=== PATIENT | female | born 1990 | race Caucasian/White ===

== ENCOUNTER 2019-03-13 21:10 | Emergency (ER) | payer OTHER ==
[2019-03-13 21:31] VITALS: BP 119/85; PULSE 91; RESP 18; TEMP 99.3
[2019-03-13] MEDS ORDERED: ACET/COD 300 MG/30 MG STARTER PACK 6 TAB BTL PO STA (22:12)
--- NOTE | 2019-03-13 22:50 | XR ---
EXAM: XR Left Wrist Complete, 3 or More Views CLINICAL HISTORY: Pain TECHNIQUE: Frontal, lateral and oblique views of the left wrist. COMPARISON: No relevant prior studies available. FINDINGS: Bones/joints: Unremarkable. No acute fracture. No dislocation. Soft tissues: Unremarkable. No radiopaque foreign body. IMPRESSION: Normal left wrist x-rays.
--- NOTE | 2019-03-13 23:00 | ED ---
General Adult HPI - General Chief complaint: Extremity Injury, Upper Stated complaint: left wrist injury Time Seen by Provider: 03/13/19 21:33 Source: patient Mode of arrival: ambulatory Limitations: no limitations - History of Present Illness Initial comments: Patient is a 28-year-old female presenting to emergency Department with a chief complaint of left wrist pain. Patient reports a kid jumped on her back and she lost balance and fell on an outstretched left wrist as she tried to brace her fall. Patient reports tenderness with palpation. Patient denies anatomical snuffbox tenderness. Patient reports the pain is exacerbated with any movement of the left wrist. Patient denies any numbness or tingling. Patient denies any lacerations or abrasions at the site. Patient reports erythema and edema but no skin discoloration. Patient reports the pain is alleviated at rest. Patient is able to move her fingers with limited range of motion. Patient reports taking [id number] analgesics minimal improvement. - Related Data Home Medications Medication Instructions Recorded Confirmed ALPRAZolam [Xanax] 2 mg PO BID 03/08/14 03/08/14 DULoxetine HCL [Cymbalta] 60 mg PO BID 03/08/14 03/08/14 Dicyclomine [Bentyl] 10 mg PO TID 03/08/14 03/08/14 HYDROcodone/APAP 7.5-325MG [[place] 1 each PO Q6HR PRN 03/08/14 03/08/14 7.5] traMADol HCl [Ultram] 100 mg PO Q6HR PRN 03/08/14 03/08/14 traZODone HCL [Desyrel] 100 mg PO HS 03/08/14 03/08/14 Allergies Allergy/AdvReac Type Severity Reaction Status Date / Time amoxicillin trihydrate Allergy Rash/Hives Verified 03/15/19 14:31 [From Augmentin] potassium clavulanate Allergy Rash/Hives Verified 03/15/19 14:31 [From Augmentin] venom-honey bee Allergy Anaphylaxis Verified 03/15/19 14:31 [bee venom (honey bee)] ibuprofen AdvReac Unknown Verified 03/15/19 14:31 Review of Systems ROS Statement: Those systems with pertinent positive or pertinent negative responses have been documented in the HPI. ROS Other: All systems not noted in ROS Statement are negative. Past Medical History Past Medical History: GERD/Reflux Additional Past Medical History / Comment(s): chron's, gastric ulcers, cervical ca (in remission), History of Any Multi-Drug Resistant Organisms: None Reported Past Surgical History: Cholecystectomy Additional Past Surgical History / Comment(s): leep, laproscopy, partial hysterectomy Past Psychological History: Anxiety, Bipolar, Depression Smoking Status: Current every day smoker Past Alcohol Use History: Rare Past Drug Use History: Marijuana General Exam Limitations: no limitations General appearance: alert, in no apparent distress Head exam: Present: atraumatic, normocephalic, normal inspection Eye exam: Present: normal appearance, PERRL, EOMI Pupils: Present: normal accommodation ENT exam: Present: normal exam, mucous membranes moist, normal external ear exam Neck exam: Present: normal inspection, full ROM Respiratory exam: Present: normal lung sounds bilaterally Cardiovascular Exam: Present: regular rate, normal rhythm, normal heart sounds Extremities exam: Present: tenderness (Left wrist tenderness. No anatomical snuffbox tenderness), normal capillary refill, other (+2 ulnar and radial pulses bilaterally). Absent: normal inspection (Mild edema and erythema on the left w rist), full ROM (Limited range of motion due to pain) Back exam: Present: normal inspection, full ROM Neurological exam: Present: alert, oriented X3 Psychiatric exam: Present: normal affect, normal mood Skin exam: Present: warm, intact, normal color Course Vital Signs 03/13/19 21:27 Temperature 99.3 F Pulse Rate 91 Respiratory 18 Rate Blood Pressure 119/85 O2 Sat by Pulse 99 Oximetry Disposition Clinical Impression: Wrist sprain Disposition: HOME SELF-CARE Condition: Stable Instructions (If sedation given, give patient instructions): Wrist Injury (ED) Additional Instructions: Please follow up with orthopedics. Please return to emergency department if symptoms worsen. Apply cold compress to minimize swelling. Is patient prescribed a controlled substance at d/c from ED?: No Referrals: None,Stated [Primary Care Provider] - 1-2 days William Subramanian DO [Medical Doctor] - 1-2 days Time of Disposition: 23:00
== END 2019-03-13 23:18 | disposition home or self-care (01) ==
LOC: EC 21:10
DX: S63.502A Unspecified sprain of left wrist, initial encounter (principal); F41.9 Anxiety disorder, unspecified; F32.9 Major depressive disorder, single episode, unspecified; F17.200 Nicotine dependence, unspecified, uncomplicated; Z85.41 Personal history of malignant neoplasm of cervix uteri; Z79.899 Other long term (current) drug therapy; Z88.0 Allergy status to penicillin; Z91.030 Bee allergy status; Z88.6 Allergy status to analgesic agent; W19.XXXA Unspecified fall, initial encounter
CPT/HCPCS: 99283

== ENCOUNTER 2019-03-15 14:26 | Emergency (ER) | payer OTHER ==
[2019-03-15 14:31] VITALS: BP 129/78; PULSE 84; RESP 16; TEMP 98.4
--- NOTE | 2019-03-15 14:49 | ED ---
General Adult HPI - General Chief complaint: Extremity Injury, Upper Stated complaint: wrist pain Time Seen by Provider: 03/15/19 14:29 Source: patient Mode of arrival: ambulatory Limitations: no limitations - History of Present Illness Initial comments: Patient is 28-year-old female presenting to emergency Department with chief complaint of left wrist pain. Patient was seen in the ED 2 days ago with the same complaint when the original injury occurred. Patient reports the pain has not resolved and she has developed mild ecchymosis on the anterior aspect of the left wrist. Patient reports mild improvement in range of motion. Patient still denies any numbness or tingling. Patient reports mild edema at the site of injury. Patient reports taking [id number] analgesics with minimal improvement. Patient reports she called the electronic publishing specialist who said they will see her in 3 weeks but she is going back to [place] in 2 weeks. - Related Data Home Medications Medication Instructions Recorded Confirmed ALPRAZolam [Xanax] 2 mg PO BID 03/08/14 03/08/14 DULoxetine HCL [Cymbalta] 60 mg PO BID 03/08/14 03/08/14 Dicyclomine [Bentyl] 10 mg PO TID 03/08/14 03/08/14 HYDROcodone/APAP 7.5-325MG [[place] 1 each PO Q6HR PRN 03/08/14 03/08/14 7.5] traMADol HCl [Ultram] 100 mg PO Q6HR PRN 03/08/14 03/08/14 traZODone HCL [Desyrel] 100 mg PO HS 03/08/14 03/08/14 Allergies Allergy/AdvReac Type Severity Reaction Status Date / Time amoxicillin trihydrate Allergy Rash/Hives Verified 03/15/19 14:31 [From Augmentin] potassium clavulanate Allergy Rash/Hives Verified 03/15/19 14:31 [From Augmentin] venom-honey bee Allergy Anaphylaxis Verified 03/15/19 14:31 [bee venom (honey bee)] ibuprofen AdvReac Unknown Verified 03/15/19 14:31 Review of Systems ROS Statement: Those systems with pertinent positive or pertinent negative responses have been documented in the HPI. ROS Other: All systems not noted in ROS Statement are negative. Past Medical History Past Medical History: GERD/Reflux Additional Past Medical History / Comment(s): chron's, gastric ulcers, cervical ca (in remission), History of Any Multi-Drug Resistant Organisms: None Reported Past Surgical History: Cholecystectomy Additional Past Surgical History / Comment(s): leep, laproscopy, partial hysterectomy Past Psychological History: Anxiety, Bipolar, Depression Smoking Status: Current every day smoker Past Alcohol Use History: Rare Past Drug Use History: Marijuana General Exam - General Exam Comments Initial Comments: General: Well-developed well-nourished distress HEENT: Normocephalic/atraumatic, PERLL, pharynx erythema, swallowing well, EAC no erythema, no exudates, TM clear, no cervical lymph nodes Neck: Supple, nontender, trachea midline Chest/Lungs: Normal respirations, no signs of respiratory distress clear to auscultation bilaterally no wheezes, rales, rhonchi Cardiac: Regular rate and rhythm, normal S1-S2, no murmurs rubs or gallops Abdomen/GI: Soft nontender, bowel sounds equal or quadrant x4, no guarding, no rebound no CVA tenderness Musculoskeletal: Left wrist tenderness, mild edema and ecchymosis on the anterior aspect of the left wrist, limited range of motion with flexion and extension, +2 ulnar radial pulses bilaterally, normal capillary refill, no lacerations or abrasions Skin: Warmth, no rashes or lesions, no cyanosis or diaphoresis Neurologic: AAO x 3, CN 2-12 intact, Psychiatric: Mood and affect normal, judgment normal Limitations: no limitations Course Vital Signs 03/15/19 14:26 Temperature 98.4 F Pulse Rate 84 Respiratory 16 Rate Blood Pressure 129/78 O2 Sat by Pulse 97 Oximetry Medical Decision Making - Medical Decision Making Patient is a 28-year-old female presents emergency Department with recurrent left wrist pain. Repeat x-ray is negative for acute fracture or dislocation. Compared to the last exam, the patient has developed anatomical snuffbox tenderness and ecchymosis at the left wrist. Patient was placed in a thumb spica. And discharged with Tylenol 3 starter pack. Patient advised to follow- up with orthopedics and discuss a possible scaphoid fracture of the left wrist. Patient advised to alternate between Tylenol and ibuprofen for pain control. Strict return parameters were thoroughly discussed with patient was understanding and agreeable. Case discussed with physician. Disposition Clinical Impression: Sprain of wrist, left Disposition: HOME SELF-CARE Condition: Stable Instructions (If sedation given, give patient instructions): Wrist Sprain (ED) Additional Instructions: Please contact orthopedics and discuss a possible scaphoid fracture and the left wrist. Alternate between Tylenol and ibuprofen for pain control. Please return to emergency department if symptoms worsen. Is patient prescribed a controlled substance at d/c from ED?: No Referrals: None,Stated [Primary Care Provider] - 1-2 days Time of Disposition: 16:09
--- NOTE | 2019-03-15 15:01 | XR ---
EXAMINATION TYPE: XR wrist complete LT DATE OF EXAM: 03/15/2019 CLINICAL HISTORY: Left wrist pain TECHNIQUE: Frontal, lateral and oblique images of the left wrist are obtained. Ethmoid view was also obtained COMPARISON: None FINDINGS: There is no acute fracture/dislocation evident in the left wrist. The joint spaces in the left wrist appear within normal limits. The overlying soft tissue appears unremarkable. IMPRESSION: There is no acute fracture or dislocation in the left wrist.
[2019-03-15] MEDS ORDERED: Acetaminophen-Codeine 300-30mg TAB PO STA (15:42)
[2019-03-15] MEDS ORDERED: ACET/COD 300 MG/30 MG STARTER PACK 6 TAB BTL PO STA (15:42)
== END 2019-03-15 16:20 | disposition home or self-care (01) ==
LOC: EC 14:26
DX: S63.502A Unspecified sprain of left wrist, initial encounter (principal); F31.9 Bipolar disorder, unspecified; F41.9 Anxiety disorder, unspecified; F17.200 Nicotine dependence, unspecified, uncomplicated; Z88.0 Allergy status to penicillin; Z88.6 Allergy status to analgesic agent; Z91.030 Bee allergy status; Z79.899 Other long term (current) drug therapy; Z85.41 Personal history of malignant neoplasm of cervix uteri; X58.XXXA Exposure to other specified factors, initial encounter
CPT/HCPCS: 29125; 99283